=== PATIENT | male | born 1985 | race Caucasian/White ===

== ENCOUNTER 2016-11-24 19:50 | Emergency (ER) | payer BC, OTHER ==
--- NOTE | 2016-11-24 20:29 | RAD ---
EXAM DESCRIPTION: Chest,1 View CLINICAL HISTORY: 31 years Male chest pain COMPARISON: None. FINDINGS: The cardiomediastinal silhouette appears unremarkable. No consolidating infiltrates or pleural effusions. No pneumothorax. Mild elevation of the right hemidiaphragm. IMPRESSION: No acute abnormality is identified. Electronically signed by: Stefanie Murcia 11/24/2016 8:28 PM CDT
--- NOTE | 2016-11-24 20:51 | ED.PDOC ---
History of Present Illness - General Chief Complaint: Chest Pain/AL Stated Complaint: chest pain, dyspnea, anxiety Time Seen by Provider: 11/24/16 20:05 Source: patient Exam Limitations: no limitations - History of Present Illness Initial Comments: Patient presents with 2 weeks of worsening chest pain, dyspnea, and anxiety. The pain is midsternal, constant, non-radiating, pressure-like, no exacerbating nor alleviating factors, no particular timing nor context, had a previous episode over a year ago, associated with dyspnea and anxiety. No other complaints. Timing/Duration: other - about 2 weeks Severity: moderate Improving Factors: nothing Worsening Factors: nothing Associated Symptoms: shortness of breath, other - anxiety Home Medications: Ambulatory Orders Lorazepam 1 mg PO BID PRN #6 tab 11/24/16 Review of Systems - Review of Systems Constitutional: States: no symptoms reported EENTM: States: no symptoms reported Respiratory: States: see HPI Cardiology: States: see HPI Gastrointestinal/Abdominal: States: no symptoms reported Genitourinary: States: no symptoms reported Musculoskeletal: States: no symptoms reported Skin: States: no symptoms reported Neurological: States: no symptoms reported Endocrine: States: no symptoms reported Hematologic/Lymphatic: States: no symptoms reported Past Medical History (General) - Patient Medical History Hx Seizures: No Hx Stroke: No Hx Dementia: No Hx Asthma: No Hx of COPD: No Hx Cardiac Disorders: No Hx Congestive Heart Failure: No Hx Pacemaker: No Hx Hypertension: No Hx Thyroid Disease: No Hx Diabetes: No Hx Gastroesophageal Reflux: No Hx Renal Disease: No Hx Cancer: No Hx of HIV: No Hx Hepatitis C: No Hx MRSA: No Surgical History: no surgical history - Vaccination History Hx Tetanus, Diphtheria Vaccination: No Hx Influenza Vaccination: No Hx Pneumococcal Vaccination: No Immunizations Up to Date: No - Social History Hx Tobacco Use: No Hx Alcohol Use: No Hx Substance Use: No Hx Substance Use Treatment: No Hx Depression: No - Female History Patient is a Female of Child Bearing Age (10 -59 yrs old): No Patient : No - Triage Comment ED Triage Comment: pt ambulated in through backdoors requested to be checked out Physical Exam - Physical Exam General Appearance: Alert Eye Exam: bilateral normal Ears, Nose, Throat: hearing grossly normal, normal ENT inspection, normal pharynx Neck: non-tender, full range of motion, supple Respiratory: chest non-tender, lungs clear, normal breath sounds Cardiovascular/Chest: normal peripheral pulses, regular rate, rhythm, no edema Gastrointestinal/Abdominal: normal bowel sounds, non tender, soft Back Exam: normal inspection, no CVA tenderness Extremity: normal range of motion, non-tender, normal inspection 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 Cardiac enzyme negative. Alprazoloam 0.5 mg po x one only mildly helped with the sx. Patient given lorazepam RX for three days and orders to follow up with his regular doctor on sunday. Laboratory Tests 11/24/16 11/24/16 11/24/16 20:10 20:10 20:10 WBC 7.9 RBC 5.41 Hgb 16.2 Hct 45.7 MCV 84.6 MCH 30.0 MCHC 35.4 RDW 13.5 Plt Count 225 MPV 8.9 Absolute Neuts (auto) 5.70 Absolute Lymphs (auto) 1.50 Absolute Monos (auto) 0.50 Absolute Eos (auto) 0.20 Absolute Basos (auto) 0.00 Neutrophils % 72.1 Lymphocytes % 19.2 L Monocytes % 5.9 Eosinophils % 2.4 Basophils % 0.4 PT 11.7 INR 1.040 PTT (SP) 32.0 Sodium 137 Potassium 3.6 Chloride 104 Carbon Dioxide 22 Anion Gap 14.6 BUN 12 Creatinine 0.92 BUN/Creatinine Ratio 13.0 Random Glucose 108 H Serum Osmolality 274.1 L Calcium 9.7 Total Bilirubin 0.8 AST 21 ALT 22 Alkaline Phosphatase 74 Creatine Kinase 118 CK-MB (CK-2) 2.1 CK-MB (CK-2) % Not Reportable Troponin I < 0.02 B-Natriuretic Peptide Serum Total Protein 7.9 Albumin 5.3 Globulin 2.6 Albumin/Globulin Ratio 2.0 H TSH Thyroxine (T4) 11/24/16 11/24/16 20:10 20:10 WBC RBC Hgb Hct MCV MCH MCHC RDW Plt Count MPV Absolute Neuts (auto) Absolute Lymphs (auto) Absolute Monos (auto) Absolute Eos (auto) Absolute Basos (auto) Neutrophils % Lymphocytes % Monocytes % Eosinophils % Basophils % PT INR PTT (SP) Sodium Potassium Chloride Carbon Dioxide Anion Gap BUN Creatinine BUN/Creatinine Ratio Random Glucose Serum Osmolality Calcium Total Bilirubin AST ALT Alkaline Phosphatase Creatine Kinase CK-MB (CK-2) CK-MB (CK-2) % Troponin I B-Natriuretic Peptide < 5.0 Serum Total Protein Albumin Globulin Albumin/Globulin Ratio TSH 1.12 Thyroxine (T4) 6.87 Departure - Departure Clinical Impression: Chest pain, Anxiety Disposition: Discharge to Home or Self Care Condition: Good Diet: resume usual diet Activity: increase activity as tolerated Referrals: Jaun Juarez MD [Primary Care Provider] - 1-2 Weeks Prescriptions: Lorazepam 1 mg PO BID PRN #6 tab PRN Reason: Anxiety Home Medications: Ambulatory Orders Lorazepam 1 mg PO BID PRN #6 tab 11/24/16 Additional Instructions: Take prescription as directed. Call your primary doctor on sunday and get an appointment for further treatment.
[2016-11-24] MEDS ORDERED: ALPRAZolam 0.25 MG TAB PO ONE (20:53)
[2016-11-25 00:16] VITALS: BP 129/81; TEMP 98.9; O2SAT 98
== END 2016-11-24 22:51 | disposition home or self-care (01) ==
LOC: ER 19:50
DX: R07.9 Chest pain, unspecified (principal); F41.9 Anxiety disorder, unspecified